=== PATIENT | male | born 1995 | race Caucasian/White ===

== ENCOUNTER 2017-09-27 17:51 | Emergency (ER) | payer OTHER ==
[2017-09-27 18:20] LABS: PLATELET COUNT 337 10^3/uL (150-400)
--- NOTE | 2017-09-27 18:24 | EDPHY ---
H & P Time Seen by Provider: 09/27/17 18:20 HPI/ROS: Chief complaint. Abdominal pain HPI. 22-year-old male with 1 day history of left-sided abdominal pain. He thinks maybe has food poisoning. His symptoms are worse after eating and he describes as left mid abdomen throbbing type discomfort. No radiation to the back. He felt better this morning and then worse again today after eating. He had some chills and hot flashes and dizziness. Nausea without vomiting. Some diarrhea. No urinary symptoms other than his urine is dark. No increased pain with movement or walking. No previous history of abdominal surgeries. No chest discomfort or trouble breathing ROS Constitutional. chills, no weakness Eyes. no problems with vision ENT. no sore throat, no nasal drainage Cardiovascular. no chest pain Respiratory. no shortness of breath, no cough Abdominal. Left side abdominal pain with nausea and diarrhea . no problems urinating MS. no calf pain/swelling, no neck/back pain, no joint pain Skin. no rash Lymph. no swollen glands Neuro. no headache, slight dizziness, no difficulty walking or with speech Past Medical/Surgical History: Healthy Social History: single, nonsmoker, no alcohol Smoking Status: Never smoked Physical Exam: General Appearance: Alert well-developed male mild distress vital signs are stable Eyes:[ Pupils equal and round no pallor or injection]. ENT,[ Mouth: Mucous membranes are moist.] Respiratory: [There are no retractions, lungs are clear to auscultation.] Cardiovascular:[ Regular rate and rhythm.] Gastrointestinal: Abdomen is soft with mild tenderness to the left side of the umbilicus. No masses. No organomegaly. No tenderness at McBurney's point Neurological: [Awake and alert, sensory and motor exams grossly normal.] Skin:[ Warm and dry, no rashes.] Musculoskeletal: [Neck is supple nontender.] Extremities [ symmetrical, full range of motion.] Psychiatric:[ Patient is oriented X 3, there is no agitation.] Constitutional: Initial Vital Signs Temperature (C) 36.9 C 09/27/17 17:58 Heart Rate 92 09/27/17 17:58 Respiratory Rate 18 09/27/17 17:58 Blood Pressure 142/82 H 09/27/17 17:58 O2 Sat (%) 97 09/27/17 17:58 O2 Delivery Mode Room Air Allergies/Adverse Reactions: No Known Allergies Allergy (Unverified 09/27/17 17:57) Home Medications: Medication Instructions Recorded NK [No Known Home Meds] 09/27/17 Medical Decision Making Procedures: IV normal saline with target of 2 L. ED Course/Re-evaluation: Serial evaluations Patient is improving 7:45 p.m. patient has had 2 L of saline. He is feeling better. Re-examination of the patient's abdomen shows no discomfort on the right side of his abdomen especially at McBurney's point. He has lessening and mild left periumbilical pain. Patient and I discussed laboratory evaluation, treatment plan including criteria for return importance of follow-up and further evaluation. He expresses understanding and agreement. The patient does not have a regular physician so he is encouraged to return for re-evaluation in 1 day for worsening symptoms. Patient agrees Differential Diagnosis: Likely this is a gastroenteritis vomiting and diarrhea type illness. It sounds very intestinal as his symptoms are worse with eating and drinking but not worse with movement or walking. No real fever. Mildly elevated white blood cell count. Considered appendicitis, urinary tract infection. - Data Points Laboratory Results: Laboratory Results 09/27/17 18:15 09/27/17 18:15 09/27/17 09/27/17 09/27/17 18:15 18:15 18:00 WBC 11.09 10^3/uL H 10^3/uL (3.80-9.50) RBC 5.86 10^6/uL 10^6/uL (4.40-6.38) Hgb 17.5 g/dL g/dL (13.7-17.5) Hct 48.5 % % (40.0-51.0) MCV 82.8 fL fL (81.5-99.8) MCH 29.9 pg pg (27.9-34.1) MCHC 36.1 g/dL g/dL (32.4-36.7) RDW 11.7 % % (11.5-15.2) Plt Count 337 10^3/uL 10^3/uL (150-400) MPV 9.6 fL fL (8.7-11.7) Neut % (Auto) 70.9 % % (39.3-74.2) Lymph % (Auto) 18.8 % % (15.0-45.0) Wells % (Auto) 8.3 % % (4.5-13.0) Eos % (Auto) 0.6 % % (0.6-7.6) Baso % (Auto) 0.5 % % (0.3-1.7) Nucleat RBC Rel Count 0.0 % % (0.0-0.2) Absolute Neuts (auto) 7.86 10^3/uL H 10^3/uL (1.70-6.50) Absolute Lymphs (auto) 2.08 10^3/uL 10^3/uL (1.00-3.00) Absolute Monos (auto) 0.92 10^3/uL H 10^3/uL (0.30-0.80) Absolute Eos (auto) 0.07 10^3/uL 10^3/uL (0.03-0.40) Absolute Basos (auto) 0.06 10^3/uL 10^3/uL (0.02-0.10) Absolute Nucleated RBC 0.00 10^3/uL 10^3/uL (0-0.01) Immature Gran % 0.9 % % (0.0-1.1) Immature Gran # 0.10 10^3/uL 10^3/uL (0.00-0.10) Sodium 144 mEq/L mEq/L (135-145) Potassium 3.5 mEq/L mEq/L (3.5-5.2) Chloride 97 mEq/L mEq/L (97-110) Carbon Dioxide 24 mEq/l mEq/l (22-31) Anion Gap 23 mEq/L H mEq/L (8-16) BUN 18 mg/dL mg/dL (7-23) Creatinine 0.9 mg/dL mg/dL (0.7-1.3) Estimated GFR > 60 Glucose 101 mg/dL H mg/dL (70-100) Calcium 10.8 mg/dL H mg/dL (8.5-10.4) Phosphorus 3.0 mg/dL mg/dL (2.5-4.5) Urine Color DARK YELLOW Urine Appearance HAZY Urine pH 7.5 (5.0-7.5) Ur Specific [place] 1.020 (1.002-1.030) Urine Protein NEGATIVE (NEGATIVE) Urine Ketones 2+ H (NEGATIVE) Urine Blood NEGATIVE (NEGATIVE) Urine Nitrate NEGATIVE (NEGATIVE) Urine Bilirubin POSITIVE H (NEGATIVE) Urine Urobilinogen 0.2 EU EU (0.2-1.0) Ur Leukocyte Esterase NEGATIVE (NEGATIVE) Urine Glucose NEGATIVE (NEGATIVE) Medications Given: Discontinued Medications Sodium Chloride (Ns) 1,000 mls @ 0 mls/hr IV EDNOW ONE; Wide Open PRN Reason: Protocol Stop: 09/27/17 18:39 Last Admin: 09/27/17 18:45 Dose: 1,000 mls Sodium Chloride (Ns) 1,000 mls @ 0 mls/hr IV EDNOW ONE; Wide Open PRN Reason: Protocol Stop: 09/27/17 18:39 Last Admin: 09/27/17 19:20 Dose: 1,000 mls Departure - Departure Disposition: Home, Routine, Self-Care Clinical Impression: Acute gastroenteritis Condition: Good Instructions: Gastroenteritis (ED) Additional Instructions: Frequent, small sips fluids. Gradual diet advancement. Return for worsening pain, fever, vomiting. Recheck in 1 day if not continuing to improve. Bobby Nam MD [phone] Referrals: NONE *PRIMARY CARE P,. [Primary Care Provider] - As per Instructions
[2017-09-27] MEDS ORDERED: NS 1,000 ML IV ONE ×2 (18:38)
[2017-09-27 19:59] VITALS: BP 131/65; PULSE 85; RESP 16; TEMP 98.2; O2SAT 96
== END 2017-09-27 19:54 | disposition home or self-care (01) ==
LOC: CED 17:51
DX: K52.9 Noninfective gastroenteritis and colitis, unspecified (principal); E86.9 Volume depletion, unspecified
CPT/HCPCS: 80048-PO; 81003-PO; 84100-PO; 85025-PO